=== PATIENT | male | born 1980 | race Hispanic/Latino ===

== ENCOUNTER 2016-11-06 22:21 | Emergency (ER) | payer SELFPAY ==
--- NOTE | 2016-11-06 23:11 | C.PDOC ---
History Of Present Illness pt presents with swelling of his feet and legs for a few days. Has numerous "scabs" from injecting heroin. No f/c/n/v or shortness of breath. Speaking in complete sentences Time Seen by Provider: 11/06/16 23:10 Chief Complaint (Nursing): Lower Extremity Problem/Injury History Per: Patient History/Exam Limitations: no limitations Onset/Duration Of Symptoms: Days Current Symptoms Are (Timing): Still Present Severity: Moderate Pain Scale Rating Of: 4 Recent travel outside of the [place]: No Additional History Per: Patient - Ankle/Foot Description Of Injury: Other Past Medical History Reviewed: Historical Data, Nursing Documentation, Vital Signs Vital Signs: Last Vital Signs Temp 98.3 F 11/06/16 22:39 Pulse 92 H 11/06/16 22:39 Resp 16 11/06/16 22:39 BP 146/83 11/06/16 22:39 Pulse Ox 97 11/07/16 00:42 - Medical History PMH: Anxiety, Asthma, Depression, Personality Disorder Denies: Diabetes, Hepatitis, HIV, HTN, Chronic Kidney Disease, Seizures, Sexually Transmitted Disease - [facility] Procedures DETOXIFICATION SERVICES FOR SUBSTANCE ABUSE TREATMENT (10/15/15) INDIVIDUAL PSYCHOTHERAPY, BEHAVIORAL (11/14/15) INJECT/INFUSE NEC (12/30/12) Family History: States: No Known Family Hx - Social History Hx Alcohol Use: No Hx Substance Use: Yes - Immunization History Hx Tetanus Toxoid Vaccination: No Hx Influenza Vaccination: No Hx Pneumococcal Vaccination: No Review Of Systems Constitutional: Negative for: Fever, Chills Eyes: Negative for: Redness ENT: Negative for: Throat Pain Cardiovascular: Negative for: Chest Pain, Palpitations Respiratory: Negative for: Shortness of Breath Gastrointestinal: Negative for: Nausea, Vomiting, Abdominal Pain Genitourinary: Negative for: Dysuria Musculoskeletal: Positive for: Leg Pain Skin: Positive for: Rash, Lesions. Negative for: Jaundice Neurological: Negative for: Weakness Psych: Negative for: Anxiety Physical Exam - Physical Exam Appears: Non-toxic, No Acute Distress Skin: Other ("scabs" surrounded by mild erythema - poss injection sites) Head: Normacephalic Eye(s): bilateral: Normal Inspection Oral Mucosa: Moist Neck: Supple Chest: Symmetrical Cardiovascular: Rhythm Regular, Edema, No Friction Rub, No Murmur Respiratory: Rales, No Rhonchi, No Wheezing Gastrointestinal/Abdominal: Soft, No Tenderness, No Distention Back: Normal Inspection Male Genital: Normal Inspection Extremity: Pedal Edema (b/l), No Calf Tenderness, Capillary Refill Extremity: Bilateral: Atraumatic, Normal ROM Neurological/Psych: Oriented x3, Normal Speech, Normal Cognition Gait: Steady ED Course And Treatment - Laboratory Results Result Diagrams: 11/06/16 23:49 11/06/16 23:49 ECG: Interpreted By Me, Viewed By Me ECG Rhythm: Sinus Rhythm (89), Nonspecific Changes O2 Sat by Pulse Oximetry: 97 Pulse Ox Interpretation: Normal - Radiology CXR: Interpreted by Me, Viewed By Me CXR Interpretation: No: Infiltrates, Fracture, Pnemothorax Medical Decision Making Medical Decision Making: Upon provider reevaluation patient is feeling better, is medically stable, and requires no further treatment in the ED at this time. Patient will be discharged home with Rx for doxycycline . Counseling was provided and all questions were answered regarding diagnosis and need for follow up with dr garcía. There is agreement to discharge plan. Return if symptoms persist or worsen. Disposition Counseled Patient/Family Regarding: Studies Performed, Diagnosis, Need For Followup - Disposition Referrals: Jake Romero MD [Staff Provider] - Disposition: HOME/ ROUTINE Disposition Time: 23:11 Condition: FAIR Prescriptions: Doxycycline Hyclate 100 mg PO BID #20 capsule Instructions: Cellulitis (DC), Narcotic Abuse (ED) - Clinical Impression Clinical Impression: Heroin abuse, Cellulitis
[2016-11-06] MEDS ORDERED: Sodium Chloride 0.9% 1,000 ML IV ONE (23:20)
[2016-11-06] MEDS ORDERED: Sodium Chloride 0.9% 1,000 ML ONE (23:40)
[2016-11-06 23:41] LABS: VENOUS BLOOD GAS BASE EXCESS 6.5 mmol/L (0.0-2.0); VENOUS BLOOD GAS PCO2 60 mmHg (40-60); VENOUS BLOOD PH 7.36 (7.32-7.43)
[2016-11-06 23:53] LABS: BASO # 0.1 K/uL (0.0-0.2); BASO % 0.5 % (0.0-2.0); EOS # 0.5 K/uL (0.0-0.7); EOS % 3.6 % (0.0-4.0); HEMATOCRIT 42.6 % (35.0-51.0); LYMPH # 4.4 K/uL (1.0-4.3); LYMPH % 35.2 % (20.0-40.0); MEAN CELL VOLUME 87.7 fL (80.0-94.0); MEAN CORPUSCULAR HEMOGLOBIN 29.9 pg (27.0-31.0); MEAN PLATELET VOLUME 8.8 fL (7.2-11.7); MONO % 7.8 % (0.0-10.0); NRBC % 0.1 % (0.0-2.0); RED CELL DISTRIBUTION WIDTH 13.8 % (11.5-14.5); WHITE BLOOD COUNT 12.6 K/uL (4.8-10.8)
[2016-11-07 00:01] LABS: CHLORIDE 96 mmol/L (98-107)
[2016-11-07 00:02] LABS: POTASSIUM 3.9 mmol/L (3.6-5.2); SODIUM 135 mmol/L (132-148)
[2016-11-07 00:04] LABS: BILIRUBIN,TOTAL 0.6 mg/dL (0.2-1.3); CARBON DIOXIDE 28 mmol/L (22-30); GFR AFRICAN-AMERICAN > 60
[2016-11-07 00:05] LABS: ALB/GLOB RATIO 1.4 (1.0-2.1); ALKALINE PHOSPHATASE 75 U/L (38-126); ALT/SGPT 24 U/L (21-72); AST/SGOT 29 U/L (17-59); BLOOD UREA NITROGEN 18 mg/dL (9-20); CALCIUM 8.6 mg/dl (8.6-10.4); GLUCOSE,RANDOM 100 mg/dL (75-110); TOTAL PROTEIN 7.3 g/dL (6.3-8.3)
[2016-11-07 00:23] LABS: RBC URINE 2 /hpf (0-3); URINE BILIRUBIN NEGATIVE (NEGATIVE); URINE BLOOD NEGATIVE (NEGATIVE); URINE COLOR Yellow (YELLOW); URINE GLUCOSE (UA) NORMAL (Normal); URINE KETONE NEGATIVE (NEGATIVE); URINE LEUKOCYTE ESTERASE 1+ Leu/uL (Negative); URINE PROTEIN NEGATIVE (NEGATIVE); WBC URINE 32 /hpf (0-5)
[2016-11-07 01:15] VITALS: BP 152/77; PULSE 101; RESP 18; TEMP 98.1; O2SAT 100
--- NOTE | 2016-11-07 10:29 | RAD ---
PROCEDURE: CHEST RADIOGRAPH, 1 VIEW HISTORY: Shortness of breath COMPARISON: 10/07/2015. FINDINGS: LUNGS: The lungs are well inflated and clear. PLEURA: No pneumothorax or pleural fluid seen. CARDIOVASCULAR: Normal. OSSEOUS STRUCTURES: No significant abnormalities. VISUALIZED UPPER ABDOMEN: Normal. OTHER FINDINGS: None. IMPRESSION: No active pulmonary disease.
--- NOTE | 2016-11-09 02:07 | CARD ---
APPROVED REPORT EKG Measurement Heart [id number] <Conclusion> Normal sinus rhythm Normal ECG
== END 2016-11-07 01:15 | disposition home or self-care (01) ==
LOC: C.ER 22:21
DX: L03.116 Cellulitis of left lower limb (principal); L03.115 Cellulitis of right lower limb; F11.10 Opioid abuse, uncomplicated
CPT/HCPCS: 71010; 80053; 81001; 82803; 83880; 85025; 85610; 85730; 87040; 93005; 99284; G0480; J7040

== ENCOUNTER 2018-09-27 08:45 | Emergency (ER) | payer MEDICAID ==
[2018-09-27 08:51] VITALS: BP 132/76; PULSE 75; RESP 18; TEMP 98.5; O2SAT 99
[2018-09-27] MEDS ORDERED: Sodium Chloride 0.9% 1,000 ML IV ONE (09:36)
--- NOTE | 2018-09-27 09:38 | C.PDOC ---
History Of Present Illness This patient eloped from the ED prior to my medical evaluation. Time Seen by Provider: 09/27/18 09:06 Chief Complaint (Nursing): Abdominal Pain Past Medical History Vital Signs: Last Vital Signs Temp 98.5 F 09/27/18 08:48 Pulse 75 09/27/18 08:48 Resp 18 09/27/18 08:48 BP 132/76 09/27/18 08:48 Pulse Ox 99 09/27/18 08:48 - Medical History PMH: Anxiety, Asthma, Depression, Personality Disorder Denies: Diabetes, Hepatitis, HIV, HTN, Chronic Kidney Disease, Seizures, Sexually Transmitted Disease - [facility] Procedures DETOXIFICATION SERVICES FOR SUBSTANCE ABUSE TREATMENT (10/15/15) INDIVIDUAL PSYCHOTHERAPY, BEHAVIORAL (11/14/15) INJECT/INFUSE NEC (12/30/12) Family History: States: Unknown Family Hx - Social History Hx Alcohol Use: No Hx Substance Use: Yes - Immunization History Hx Tetanus Toxoid Vaccination: No Hx Influenza Vaccination: No Hx Pneumococcal Vaccination: Yes ED Course And Treatment O2 Sat by Pulse Oximetry: 99 Disposition - Disposition Disposition: ELOPEMENT - ER ONLY Disposition Time: 09:30 Condition: STABLE Forms: [facility] (Chinese) - Clinical Impression Clinical Impression: Abdominal pain - PA / [employer] / Resident Statement MD/DO has reviewed & agrees with the documentation as recorded. - Scribe Statement The provider has reviewed the documentation as recorded by the Scribe (Alexandra Huff) All medical record entries made by the Scribe were at my direction and personally dictated by me. I have reviewed the chart and agree that the record accurately reflects my personal performance of the history, physical exam, medical decision making, and the department course for this patient. I have also personally directed, reviewed, and agree with the discharge instructions and disposition.
== END 2018-09-27 09:30 | disposition left against medical advice (07) ==
LOC: C.ER 08:45
DX: R10.9 Unspecified abdominal pain (principal)